=== PATIENT | female | born 1980 | race Caucasian/White ===

== ENCOUNTER 2016-12-11 10:32 | Emergency (ER) | payer OTHER ==
[~2016-12-11] VITALS: Ht 172.7 cm; Wt 122.7 kg
[2016-12-11 10:32] VITALS: BP 122/63; PULSE 72; RESP 20; O2SAT 96
[2016-12-11 10:45] LABS: BASOPHILS % (AUTO) 0.5 % (0-3); EOSINOPHILS % (AUTO) 1.4 % (0-5); MONOCYTES % (AUTO) 5.7 % (4-12); Mean Corpuscular Hemoglobin 29.2 pg (27.0-35.0); Mean Corpuscular Volume 86.3 fL (81-100); NEUTROPHILS % (AUTO) 61.8 % (40-74); Platelet Count 286 bil/L (150-400)
--- NOTE | 2016-12-11 10:53 | ED.REPORT ---
HPI-Chest Pain Under 40 Date of Service December 11, 2016 ED Provider: Amando Larson MD The pt is a 36 year old female w/ a hx of DVT left calf who presents to the ED via EMS sent from due to sudden onset, shooting, left sided back pain that radiates to the front left thoracic and chest. The pt drove her kids to school today, was walking out of the car and began to experience shooting back pain. The pain is worse when she moves her shoulders but walking does not exacerbate her symptoms. She can also feel the pain when she turns her head to the left and with inhalation. She denies SOB, leg swelling, leg pain, nausea, vomiting, dizziness, lightheadedness, fevers, hematochezia or cough. Nursing Notes Stated Complaint: CHEST PAIN Chief Complaint: Chest Pain Nursing Notes Reviewed: Yes Allergies: Coded Allergies: No Known Allergies (Unverified , 12/11/16) Scheduled Cetirizine (Cetirizine) 5 Mg Tablet 5 MG PO DAILY Duloxetine (Cymbalta) 60 Mg Capsule.dr 60 MG PO DAILY Sertraline HCl (Zoloft) 20 Mg/1 Ml Oral.conc 100 MG PO DAILY Sulfamethoxazole/Trimeth 800-160 mg (Bactrim DS 800-160 mg) 1 Each Tablet 1 TABLET PO BID Scheduled PRN Alprazolam (Xanax) 0.5 Mg Tablet 0.5 MG PO TID PRN PRN For Anxiety Fluticasone Propionate (Flonase Allergy Relief) 50 Mcg/Actuation [place].susp 1-2 SPRAYS NS DAILY PRN PRN AD Ibuprofen (Ibuprofen) 800 Mg Tablet 800 MG PO TID PRN PRN For Pain Ibuprofen (Ibuprofen) 800 Mg Tablet 800 MG PO TID PRN PRN For Pain General Time Seen by MD: 10:46 Chief Complaint Back pain Hx Obtained From: Patient Arrived By: Walk-in Sudden in Onset?: Yes Onset Occurred: Just prior to arrival Symptom Duration: Since onset Location: : Back Quality: Painful, Stabbing Radiation: : Abdomen: Shoulder left Severity: Current: Mild Recent Healthcare: No recent doctor visit, No recent hospitalization Similar Sx Previous: No Past Medical History Past Medical History DVT L calf high factor 8 Past Surgical History ovarian cyst removed Smoking History Former Smoker Social History Other Social History: Good social support, , Local resident Ambulatory Status Independent Review of Systems Constitutional: Denies: Fever Respiratory: Denies: Non-productive cough, Shortness of breath GI: Denies: Hematochezia, Nausea, Vomiting Musculoskeletal: Reports: Back pain, Denies: Extremity pain, Extremity swelling Neurologic: Denies: Lightheaded Complete sys rev & neg: except as marked. Physical Exam Initial Vital Signs Vital Signs (First) Date Time Temp Pulse Resp B/P Pulse Ox O2 Delivery O2 Flow Rate FiO2 12/11/16 10:32 36.9 72 20 122/63 96 Room Air Initial VS: Reviewed Head / Eyes: Atraumatic, Normocephalic, PERRL ENT: Mucous membranes moist Abdomen / GI: Soft, Non-tender, No guarding, No rebound Extremities: Vascular intact, Neuro intact, No swelling, No tenderness Skin: Warm, Dry General/Constitutional: Awake, Alert, Cooperative, Not toxic appearing Cardiovascular: No gallop, No murmurs, No rubs chest pain is nonreproducible Lower Extremity / Pelvis / MS: Inspection NL, No edema Interpretation & Diagnostics Lab Results Interpretation Result Diagram: 12/11/16 1040 12/11/16 1100 Test 12/11/16 10:40 12/11/16 11:00 12/11/16 12:55 White Blood Count 5.8th/mm3 (3.8-10.1) Red Blood Count 5.24mil/mm3 (3.90-5.20) Hemoglobin 15.3g/dL (12.0-15.6) Hematocrit 45.2% (35.0-46.0) Mean Corpuscular Volume 86.3fL (81-100) Mean Corpuscular Hemoglobin 29.2pg (27.0-35.0) Mean Corpuscular Hemoglobin Concent 33.8% (32.0-37.0) Red Cell Distribution Width 13.2% (12.3-15.4) Platelet Count 286bil/L (150-400) Neutrophils (%) (Auto) 61.8% (40-74) Lymphocytes (%) (Auto) 30.4% (14-46) Monocytes (%) (Auto) 5.7% (4-12) Eosinophils (%) (Auto) 1.4% (0-5) Basophils (%) (Auto) 0.5% (0-3) D-Dimer 0.50mg/L FEU (<0.50) Hold Ley Top Tube Received (Received) Sodium Level 134mEq/L (134-144) Potassium Level 4.1mEq/L (3.5-5.2) Chloride Level 98mEq/L (97-108) Carbon Dioxide Level 21mmol/L (18-29) Blood Urea Nitrogen 12mg/dL (6-20) Creatinine 0.79mg/dL (0.57-1.00) Estimat Glomerular Filtration Rate 118mL/min (>59) Glucose Level 126mg/dL (60-99) Calcium Level 9.6mg/dL (8.5-10.1) Magnesium Level 2.3mg/dL (1.6-2.6) Total Bilirubin 0.3mg/dL (0.0-1.2) Aspartate Amino Transf (AST/SGOT) 21U/L (0-50) Alanine Aminotransferase (ALT/SGPT) 26U/L (0-32) Alkaline Phosphatase 69U/L (25-150) Total Protein 7.7g/dL (6.4-8.4) Albumin 4.3g/dL (3.4-5.0) Troponin T < 0.010ug/L (0.0-0.011) ECG Interpretation ECG Interpretation: unchanged from prior Time: 10:47 Interpreted by: ED physician Normal ECG Interpretation: Normal sinus rhythm (rate 77) X-Ray Chest Interpretation Chest Xray Interpretation: IMPRESSION: 1. No acute cardiopulmonary disease. Dictated by: Ulises Barajas M.D. on 12/11/2016 at 10:53 Approved by: Ulises Barajas M.D. on 12/11/2016 at 11:03 View: Portable Interpretation / Wet Read by: Interpret - Radiologist Re-Eval/Medical Decision Med Decision/Clinical Course 36-year-old female history of DVT presenting with left-sided chest pain since this morning. Vital signs stable. Pain resolved with Toradol. She finds negative 2. D-dimer negative. Chest x-ray is clear. Musculoskeletal given normal workup as above and resolution with Toradol. Discharged home in good condition with return precautions and follow-up with primary doctor this week. Re-Evaluation/Progress : Time of Eval: 12:42 Re-Evaluation/Progress Note: Pt rechecked. All labs and imaging are reassuring, there are no acute findings. Plan for repeat blood draw. Pt understands and agrees with plan. Counseled Regarding: Diagnosis, Lab results, Need for follow-up, When/why to return to ED Discharge & Departure Primary Impression: Chest pain Chest pain type: unspecified Qualified Code: R07.9 - Chest pain, unspecified Disposition: Home Discharge Condition All VS Reviewed: Yes Condition: Stable Additional Instructions: All of your labs and imaging were normal, there were no acute findings. Follow up with your primary care physician as needed. Return to the Emergency Department for any new or worsening symptoms including chest pain, shortness of breath, sweating, nausea, and vomiting. I am glad the Toradol shot helped! Referrals: Justo Martínez MD (PCP) [facility] Attestation Portion of this note were transcribed by Shagufta Walter. I, Dr. Larson, personally performed the history, physical exam, and medical decision-making: I reviewed and confirmed the accuracy for the information in the transcribed note. Signed by: marcello Álvarez, 12/11/16 1300 copies to: Justo Martínez MD, Ben M MD December 11, 2016 10:53 Shagufta Walter December 11, 2016 10:59
[2016-12-11] MEDS ORDERED: SULF1TAB35 PO (11:04)
[2016-12-11] MEDS ORDERED: SERT20OR PO (11:04)
[2016-12-11] MEDS ORDERED: IBUP800T28 PO ×2 (11:04→14:03)
[2016-12-11] MEDS ORDERED: ALPR0.5T PO (11:04)
[2016-12-11] MEDS ORDERED: CETI5TAB28 PO (11:04)
[2016-12-11] MEDS ORDERED: FLUT9.9S NS (11:04)
[2016-12-11] MEDS ORDERED: DULO60CA42 PO (11:04)
--- NOTE | 2016-12-11 11:05 | DRSVH ---
PROCEDURE: X-RAY CHEST ONE VIEW, PORTABLE ([id number]) INDICATIONS: chest pain TECHNIQUE: One view of the chest was acquired. COMPARISON: None. FINDINGS: Surgical changes and devices: None. Lungs and pleura: No pleural effusions or pneumothorax. Lungs are clear. Mediastinum: Mediastinal contours appear normal. Heart size is normal. Bones and chest wall: No suspicious bony lesions. Overlying soft tissues appear unremarkable. IMPRESSION: 1. No acute cardiopulmonary disease. Dictated by: Ulises Barajas M.D. on 12/11/2016 at 10:53 Approved by: Ulises Barajas M.D. on 12/11/2016 at 11:03
[2016-12-11 12:03] LABS: Magnesium 2.3 mg/dL (1.6-2.6)
[2016-12-11 12:23] LABS: TROPONIN T < 0.010 ug/L (0.0-0.011)
[2016-12-11 13:21] VITALS: BP 118/72; PULSE 63; RESP 17; O2SAT 98
[2016-12-11 14:09] VITALS: BP 111/63; PULSE 70; RESP 17; O2SAT 97
== END 2016-12-11 14:11 | disposition home or self-care (01) ==
LOC: SED 10:32
DX: R07.9 Chest pain, unspecified (principal); Z86.718 Personal history of other venous thrombosis and embolism; Z87.891 Personal history of nicotine dependence
CPT/HCPCS: 36415; 71010; 80053; 83735; 84484; 85025; 85378; 93005; 96374; 99285; J1885